=== PATIENT | male | born 1955 | race Caucasian/White ===

== ENCOUNTER 2023-09-17 08:52 | Outpatient (CLI) | payer MEDICARE, OTHER | END 2023-09-17 08:53 | disposition home or self-care (01) | LOC: CSHCT 08:52 | PROVIDERS: ATTEND Urology | DX: N40.1 Benign prostatic hyperplasia with lower urinary tract symptoms (principal); R31.29 Other microscopic hematuria; D36.9 Benign neoplasm, unspecified site; R97.20 Elevated prostate specific antigen [PSA] | CPT/HCPCS: 74178 ==